=== PATIENT | male | born 1965 | race Caucasian/White ===

== ENCOUNTER → 2017-04-30 | Outpatient (CLI) | payer OTHER ==
[~2017-04-30] MED LIST: ADVAIR 250/501 EA INH; ASPIRIN80 MG PO; CELEBREX200 MG PO; DARVOCET N 1001 TAB PO; DAYPRO600 M1 PO; HYDROCODONE BIT1 T11 PO; LISINOPRIL10 MG PO; MULTI VITAMINS1 TAB PO; MULTI-DAY VITA1 EACH PO; Motrin,Rufen800 MG PO; NEURONTIN400 MG PO; ONCE DAILY1 TA1 PO; Orphenadrine C100 MG PO; PROVENTIL0.09 MG/AC PO; ROBAXIN750 MG PO; TOBRADEX 0.1%-0.5 ML OPH; TRAMADOL HCL50 MG PO; VALIUM2 MG PO; VICODIN ES 7501 TAB PO; ZOFRAN ODT4 MG SL
== END | disposition home or self-care (01) ==
LOC: RAD 15:13
DX: M54.2 Cervicalgia (principal); M62.89 Other specified disorders of muscle; R51 Headache; Z98.1 Arthrodesis status; Z98.890 Other specified postprocedural states

== ENCOUNTER 2017-10-21 10:01 | Emergency (ER) | payer OTHER ==
[~2017-10-21] VITALS: Wt 86.2 kg
[2017-10-21 10:41] LABS: BASO # 0.1 10*3/uL (0.0-0.1); BASO % 0.5 % (0.0-1.0); EOS # 0.3 10*3/uL (0.0-0.4); EOS % 3.1 % (1.0-4.0); HEMATOCRIT 42.2 % (42.0-52.0); HEMOGLOBIN 14.1 g/dl (14.0-18.0); LYMPH # 3.4 10*3/uL (1.3-4.4); LYMPH % 31.7 % (27.0-41.0); MEAN CELL VOLUME 91.9 fl (80.0-94.0); MEAN CORPUSCULAR HGB 30.7 pg (27.0-31.0); MEAN CORPUSCULAR HGB CONC 33.4 g/dl (33.0-37.0); MEAN PLATELET VOLUME 9.8 fl (9.6-12.3); MONO # 0.6 10*3/uL (0.1-1.0); MONO % 5.9 % (3.0-9.0); NEUT # 6.3 10*3/uL (2.3-7.9); NEUT % 58.5 % (47.0-73.0); PLATELET COUNT AUTOMATED 306 10*3/uL (130-400); RED BLOOD COUNT 4.59 10*6/uL (4.50-5.90); RED CELL DISTRI WIDTH 13.2 % (0-14.5); WHITE BLOOD COUNT 10.7 10*3/uL (4.8-10.8)
[2017-10-21 10:48] VITALS: BP 129/82
[2017-10-21 10:53] LABS: BILIRUBIN NEGATIVE (NEGATIVE); BLOOD NEGATIVE (NEGATIVE); CLARITY SL CLOUDY (CLEAR); COLOR YELLOW (YELLOW); GLUCOSE NEGATIVE (NEGATIVE); KETONE NEGATIVE (NEGATIVE); LEUKO ESTERASE NEGATIVE (NEGATIVE); NITRITE NEGATIVE (NEGATIVE); UROBILINOGEN 0.2 E.U./dl (0.2-1.0)
[2017-10-21 10:56] LABS: ALKALINE PHOSPHATASE 94 U/L (45-117); BUN 15 mg/dl (7-24); CHLORIDE 105 mmol/L (98-107); CREATININE 1.18 mg/dL (0.70-1.30); LIPASE 159 U/L (73-393); POTASSIUM 4.3 mmol/L (3.5-5.1); SGOT/AST 15 IU/L (3-35); SGPT/ALT 22 U/L (12-78); SODIUM 140 mmol/L (136-145); TOTAL PROTEIN 7.8 gm/dL (6.4-8.2)
[2017-10-21 11:11] LABS: BACTERIA TRACE; EPITHELIAL CELLS 0-2
[2017-10-21] MEDS ORDERED: BENTYL10 MG PO (12:31)
== END 2017-10-21 12:35 | disposition home or self-care (01) ==
LOC: ED 10:01
PROVIDERS: Physician Assistant
DX: K52.89 Other specified noninfective gastroenteritis and colitis (principal); F17.200 Nicotine dependence, unspecified, uncomplicated; Z90.89 Acquired absence of other organs; Z79.899 Other long term (current) drug therapy; Z88.5 Allergy status to narcotic agent

== ENCOUNTER → 2017-12-02 | Outpatient (CLI) | payer OTHER ==
[~2017-12-02] MED LIST changes: +BENTYL10 MG PO
== END | disposition home or self-care (01) ==
LOC: US 11-25 14:00 → CT 11-25 14:00
DX: I65.23 Occlusion and stenosis of bilateral carotid arteries (principal); H53.2 Diplopia

== ENCOUNTER → 2017-12-25 | Outpatient (CLI) | payer OTHER | END | disposition home or self-care (01) | LOC: MRI 14:38 | DX: H53.8 Other visual disturbances (principal); R51 Headache; R42 Dizziness and giddiness; R26.9 Unspecified abnormalities of gait and mobility ==

== ENCOUNTER 2018-03-26 22:41 | Emergency (ER) | payer OTHER ==
[~2018-03-26] VITALS: Ht 177.8 cm; Wt 83.9 kg
[2018-03-26 22:41] VITALS: BP 129/82
== END 2018-03-26 23:58 | disposition home or self-care (01) ==
LOC: ED 22:41
DX: T15.01XA Foreign body in cornea, right eye, initial encounter (principal); Z90.89 Acquired absence of other organs; Z79.899 Other long term (current) drug therapy; Z88.5 Allergy status to narcotic agent; X58.XXXA Exposure to other specified factors, initial encounter; Y93.89 Activity, other specified; Y92.89 Other specified places as the place of occurrence of the external cause; Y99.9 Unspecified external cause status

== ENCOUNTER → 2018-04-02 | Outpatient (CLI) | payer OTHER | END | disposition home or self-care (01) | LOC: RAD 15:52 | DX: M54.12 Radiculopathy, cervical region (principal); R20.0 Anesthesia of skin; R20.2 Paresthesia of skin ==

== ENCOUNTER → 2018-04-17 | Outpatient (CLI) | payer OTHER | END | disposition home or self-care (01) | LOC: RAD 15:48 | DX: M54.5 Low back pain (principal); R20.2 Paresthesia of skin ==

== ENCOUNTER → 2018-09-16 | Outpatient (CLI) | payer OTHER | END | disposition home or self-care (01) | LOC: NM 07:00 | DX: E05.90 Thyrotoxicosis, unspecified without thyrotoxic crisis or storm (principal); F41.9 Anxiety disorder, unspecified; R19.7 Diarrhea, unspecified; L60.3 Nail dystrophy ==

== ENCOUNTER → 2018-09-24 | Outpatient (CLI) | payer OTHER ==
[2018-09-24 15:31] LABS: BASO # 0.1 10*3/uL (0.0-0.1); BASO % 0.7 % (0.0-1.0); EOS # 0.4 10*3/uL (0.0-0.4); EOS % 3.7 % (1.0-4.0); HEMATOCRIT 31.4 % (42.0-52.0); HEMOGLOBIN 10.1 g/dl (14.0-18.0); LYMPH # 3.7 10*3/uL (1.3-4.4); LYMPH % 38.2 % (27.0-41.0); MEAN CELL VOLUME 95.7 fl (80.0-94.0); MEAN CORPUSCULAR HGB 30.8 pg (27.0-31.0); MEAN CORPUSCULAR HGB CONC 32.2 g/dl (33.0-37.0); MEAN PLATELET VOLUME 9.8 fl (9.6-12.3); MONO # 0.6 10*3/uL (0.1-1.0); NEUT # 4.9 10*3/uL (2.3-7.9); PLATELET COUNT AUTOMATED 283 10*3/uL (130-400); RED BLOOD COUNT 3.28 10*6/uL (4.50-5.90); RED CELL DISTRI WIDTH 12.9 % (0-14.5); WHITE BLOOD COUNT 9.6 10*3/uL (4.8-10.8)
[2018-09-24 16:03] LABS: CHLORIDE 112 mmol/L (98-107); POTASSIUM 4.2 mmol/L (3.5-5.1); SODIUM 143 mmol/L (136-145)
[2018-09-24 16:18] LABS: ALBUMIN 3.5 gm/dl (3.1-4.5); ALKALINE PHOSPHATASE 106 U/L (45-117); BUN 16 mg/dl (7-24); CREATININE 1.17 mg/dL (0.70-1.30); FREE T4 0.82 ng/dl (0.76-1.46); SGOT/AST 11 IU/L (3-35); SGPT/ALT 16 U/L (12-78); THYROID STIM HORMONE (HS) 0.118 uIU/ml (0.358-4.75); THYROXINE (T4) TOTAL 9.6 ug/dl (4.5-12.1); TOTAL PROTEIN 6.8 gm/dL (6.4-8.2)
== END | disposition home or self-care (01) ==
LOC: LAB 14:48
PROVIDERS: Internal Medicine
DX: G43.909 Migraine, unspecified, not intractable, without status migrainosus (principal); E05.90 Thyrotoxicosis, unspecified without thyrotoxic crisis or storm

== ENCOUNTER → 2018-11-11 | Outpatient (CLI) | payer OTHER ==
[2018-11-11 17:02] LABS: IRON 31 ug/dL (65-175); TOTAL IRON BINDING CAPACITY 322 ug/dl (250-450)
[2018-11-12 07:07] LABS: TRANSFERRIN 004937 270 mg/dL (200-370)
[2018-11-12 12:12] LABS: ANTI-DSDNA ANTIBODIES 096339 1 IU/mL (0-9)
[2018-11-12 20:08] LABS: CCP ANTIBODIES IGG/IGA 4 units (0-19)
== END | disposition home or self-care (01) ==
LOC: LAB 16:18
PROVIDERS: Internal Medicine
DX: D64.9 Anemia, unspecified (principal); R76.8 Other specified abnormal immunological findings in serum

== ENCOUNTER → 2018-11-18 | Outpatient (CLI) | payer OTHER ==
[2018-11-19 16:09] LABS: EBV NUCLEAR ANTIGEN IGG >600.0 U/mL (0.0-17.9); EPSTEIN-BARR VCA IGM AB <36.0 U/mL (0.0-35.9)
[2018-11-20 15:08] LABS: CMV QNT Negative (Negative)
== END | disposition home or self-care (01) ==
LOC: LAB 16:37
PROVIDERS: Internal Medicine
DX: R53.82 Chronic fatigue, unspecified (principal)

== ENCOUNTER 2018-12-18 15:16 | Emergency (ER) | payer OTHER ==
[~2018-12-18] VITALS: Ht 177.8 cm; Wt 83.9 kg
[2018-12-18 15:16] VITALS: BP 130/74
[2018-12-18 15:45] LABS: BASO % 0.4 % (0.0-1.0); EOS # 0.2 10*3/uL (0.0-0.4); EOS % 2.3 % (1.0-4.0); HEMATOCRIT 39.4 % (42.0-52.0); HEMOGLOBIN 12.7 g/dl (14.0-18.0); LYMPH # 3.1 10*3/uL (1.3-4.4); LYMPH % 30.8 % (27.0-41.0); MEAN CORPUSCULAR HGB 31.6 pg (27.0-31.0); MEAN CORPUSCULAR HGB CONC 32.2 g/dl (33.0-37.0); MEAN PLATELET VOLUME 9.5 fl (9.6-12.3); MONO # 0.5 10*3/uL (0.1-1.0); MONO % 5.3 % (3.0-9.0); NEUT # 6.1 10*3/uL (2.3-7.9); NEUT % 60.9 % (47.0-73.0); PLATELET COUNT AUTOMATED 270 10*3/uL (130-400); RED BLOOD COUNT 4.02 10*6/uL (4.50-5.90); RED CELL DISTRI WIDTH 12.8 % (0-14.5)
[2018-12-18 16:05] LABS: BUN 15 mg/dl (7-24); CHLORIDE 106 mmol/L (98-107); POTASSIUM 3.4 mmol/L (3.5-5.1); SODIUM 140 mmol/L (136-145)
== END 2018-12-18 17:01 | disposition home or self-care (01) ==
LOC: ED 15:16
PROVIDERS: Emergency Medicine
DX: G43.909 Migraine, unspecified, not intractable, without status migrainosus (principal); F17.200 Nicotine dependence, unspecified, uncomplicated; G89.29 Other chronic pain; M54.2 Cervicalgia; Z90.89 Acquired absence of other organs; Z79.899 Other long term (current) drug therapy; Z88.5 Allergy status to narcotic agent

== ENCOUNTER 2019-04-27 17:05 | Inpatient (IN) | payer OTHER ==
[~2019-04-27] VITALS: Ht 177.8 cm; Wt 80.1 kg
--- NOTE | ~2019-04-27 | EKG ---
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
--- NOTE | ~2019-04-27 | EKG ---
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
--- NOTE | ~2019-04-27 | EKG ---
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
[2019-04-27] MEDS ORDERED: TRAZODONE50 MG PO (17:15)
[2019-04-27] MEDS ORDERED: TOPAMAX50 MG PO (17:16)
[2019-04-27] MEDS ORDERED: FERROUS SULFAT324 M2 PO (17:16)
[2019-04-27] MEDS ORDERED: TRAMADOL HCL50 MG PO (17:17)
[2019-04-27] MEDS ORDERED: GABAPENTIN800 MG PO (17:17)
[2019-04-27] MEDS ORDERED: ADVAIR 250/501 EA INH (17:18)
[2019-04-27] MEDS ORDERED: PROAIR HFA8.5 GM INH (17:18)
[2019-04-27] MEDS ORDERED: OMEPRAZOLE40 MG PO (17:19)
[2019-04-27] MEDS ORDERED: CYMBALTA60 MG PO (17:19)
[2019-04-27] MEDS ORDERED: TAPAZOLE10 MG PO (17:19)
[2019-04-27 17:32] LABS: BASO # 0.1 10*3/uL (0.0-0.1); BASO % 0.7 % (0.0-1.0); EOS # 0.4 10*3/uL (0.0-0.4); EOS % 4.7 % (1.0-4.0); HEMATOCRIT 38.1 % (42.0-52.0); HEMOGLOBIN 12.2 g/dl (14.0-18.0); LYMPH % 36.6 % (27.0-41.0); MEAN CELL VOLUME 95.5 fl (80.0-94.0); MEAN CORPUSCULAR HGB 30.6 pg (27.0-31.0); MEAN PLATELET VOLUME 10.2 fl (9.6-12.3); MONO # 0.7 10*3/uL (0.1-1.0); MONO % 8.4 % (3.0-9.0); NEUT % 49.2 % (47.0-73.0); PLATELET COUNT AUTOMATED 280 10*3/uL (130-400); RED BLOOD COUNT 3.99 10*6/uL (4.50-5.90); RED CELL DISTRI WIDTH 13.6 % (0-14.5); WHITE BLOOD COUNT 8.1 10*3/uL (4.8-10.8)
[2019-04-27 17:39] VITALS: BP 105/68
[2019-04-27 17:44] LABS: ACT PARTIAL THROMBO TIME 28.5 SECONDS (20.0-32.1); INTERNATIONAL NORM RATIO 0.9 (2.0-3.5)
[2019-04-27 17:51] LABS: ALBUMIN 3.6 gm/dl (3.1-4.5); ALKALINE PHOSPHATASE 109 U/L (45-117); BUN 18 mg/dl (7-24); CHLORIDE 112 mmol/L (98-107); CREATININE 1.17 mg/dL (0.70-1.30); SGOT/AST 13 IU/L (3-35); SGPT/ALT 19 U/L (12-78); SODIUM 142 mmol/L (136-145); TOTAL PROTEIN 7.1 gm/dL (6.4-8.2)
[2019-04-27 17:52] LABS: TROPONIN I < 0.015 ng/ml (<0.045)
[2019-04-27 18:35] VITALS: BP 125/68
--- NOTE | 2019-04-27 19:05 | NUR ---
RECEIVED ROOM NUMBER 426, STATED THAT THE ROOM WAS NOT READY AND THE PT WOULD NOT BE GOING UPSTAIRS UNTIL AFTER 7PM
[2019-04-27 19:39] VITALS: BP 115/68
--- NOTE | 2019-04-27 19:45 | NUR ---
CALLED TO GIVE REPORT, STATED THAT THE ROOM IS NOT CLEAN AND IS NOT READY FOR PT, STATED THAT THEY WILL CALL WHEN ROOM IS CLEAN.
--- NOTE | 2019-04-27 20:22 | NUR ---
SPOKE WITH HAMLET STATED THAT THE ROOM IS CLEAN AT THIE TIME.
[2019-04-27 20:25] VITALS: BP 113/73
--- NOTE | 2019-04-27 20:25 | NUR ---
A 53, admitted to 4E, under the services of MILI Bear MD with a diagnosis of NONSPECIFIC CHEST PAIN, ARM PAIN, LEFT LEG PAIN. Chief complaint is ANGINA. Patient arrived via wheel chair from ER. Monitor applied. Initial assessment completed. Vital signs taken and recorded. MILI BEAR MD notified of admission to the unit. Orders received. See assessment for past medical history, medications and allergies. Patient and/or family oriented to unit. [facility] visitation policy reviewed. Clothing/patient valuable form completed. HAMLET NICKERSON
--- NOTE | 2019-04-27 21:00 | NUR ---
NOTIFIED DR SHARP THAT PT'S MED REC IS UP TO DATE.
[2019-04-28] VITALS: BP 118/64
[2019-04-28 06:33] LABS: INTERNATIONAL NORM RATIO 0.9 (2.0-3.5)
[2019-04-28 06:43] LABS: ALBUMIN 3.3 gm/dl (3.1-4.5); BASO # 0.1 10*3/uL (0.0-0.1); BASO % 0.4 % (0.0-1.0); BUN 15 mg/dl (7-24); CHLORIDE 112 mmol/L (98-107); CHOLESTEROL 143 mg/dL (<200); CREATININE 1.26 mg/dL (0.70-1.30); EOS # 0.4 10*3/uL (0.0-0.4); EOS % 3.5 % (1.0-4.0); HEMATOCRIT 37.9 % (42.0-52.0); HEMOGLOBIN 12.1 g/dl (14.0-18.0); LYMPH # 2.2 10*3/uL (1.3-4.4); LYMPH % 19.7 % (27.0-41.0); MEAN CELL VOLUME 96.7 fl (80.0-94.0); MEAN CORPUSCULAR HGB 30.9 pg (27.0-31.0); MEAN CORPUSCULAR HGB CONC 31.9 g/dl (33.0-37.0); MEAN PLATELET VOLUME 10.1 fl (9.6-12.3); MONO # 0.7 10*3/uL (0.1-1.0); MONO % 5.7 % (3.0-9.0); NEUT % 70.4 % (47.0-73.0); PHOSPHOROUS 2.3 mg/dL (2.5-4.9); PLATELET COUNT AUTOMATED 262 10*3/uL (130-400); POTASSIUM 4.2 mmol/L (3.5-5.1); RED BLOOD COUNT 3.92 10*6/uL (4.50-5.90); RED CELL DISTRI WIDTH 13.7 % (0-14.5); SGOT/AST 12 IU/L (3-35); SGPT/ALT 17 U/L (12-78); SODIUM 144 mmol/L (136-145); TOTAL PROTEIN 6.5 gm/dL (6.4-8.2); TRIGLYCERIDES 90 mg/dl (<150); VLDL CHOLESTEROL 18 mg/dL (6-40); WHITE BLOOD COUNT 11.3 10*3/uL (4.8-10.8)
[2019-04-28 06:49] LABS: ALKALINE PHOSPHATASE 101 U/L (45-117); HDL CHOLESTEROL 45 mg/dl (40-60); LDL CHOLESTEROL 80 mg/dL (9-159)
--- NOTE | 2019-04-28 07:50 | NUR ---
PT SLEEPING IN BED, AWAKENS EASILY. RESP-EASY AND REGULAR. NO C/O AT THIS TIME. CALL LIGHT IN REACH. SEE SHIFT ASSESSMENT.
--- NOTE | 2019-04-28 09:00 | NUR ---
Food Safety Scientist in to see patient. He is currently not in his room. Will follow up at a later time.
--- NOTE | 2019-04-28 09:00 | NUR ---
ASSISTED DOWN TO CARDIAC REHAB VIA WHEELCHAIR.
[2019-04-28 09:39] LABS: VITAMIN D, 25-HYDROXY 42.4 ng/mL (30-100)
--- NOTE | 2019-04-28 10:15 | NUR ---
INFORMED CONSENT OBTAINED FOR EXERCISE CARDIOLITE WITH DR. ELAINE. RESTING EKG NSR WITH A SUPINE HR OF 60 WITH BP OF 124/70 AND HR OF 67 WITH BP OF 118/76 IN STANDING POSITION. PT COMPLETED 10:45 OF A KERRY PROTOCOL WITH COMPLETION OF 1:45 OF STAGE IV AT 4.2 MPH AND 16% GRADE. REACHED A PEAK HR OF 157 WHICH IS 93% OF PREDICTED MAX WITH A PEAK BP OF 174/50. TEST TERMINATED BECAUSE OF FATIGUE. HAD NO CHEST PAIN OR ANY EKG CHANGES. HAS A RARE PVC WITH ONE COUPLET. HAS A HIGH EXERCISE TOLERANCE. LAST RECOVERY HR OF 96 WITH BP OF 112/64. AWAITING SCANNING IN STABLE CONDITION.
--- NOTE | 2019-04-28 10:34 | NUR ---
Pacu Rn in to see patient. He is currently not in his room. Will follow up at a later time.
[2019-04-28 12:00] VITALS: BP 119/74
--- NOTE | 2019-04-28 12:30 | NUR ---
Cream Tester in to talk to patient. Patient states lives at home with his and 2 sons. There are 13 steps in the home. Physician: Dr. Karl Sanches Pharmacy: [facility] Home health services: none Patient's level of ADLs: INDEPENDENT Patient has working utilities: yes DME: none Follow-up physician's appointment after d/c: he prefers to make his own follow up appt after discharge Does patient want to access PORTAL?: no Discharge plan discussed with patient. He lives at home with his and 2 sons. He is independent in his ADLs and ambulation. Discussed home health care services and he denies any home needs at this time. When medically stable he will be discharged to home. NANDINI ARREOLA
--- NOTE | 2019-04-28 13:20 | NUR ---
TOLERATED ROUTINE MED WITH NO PROBLEM. CALL LIGHT IN REACH.
[2019-04-28 16:00] VITALS: BP 115/70
--- NOTE | 2019-04-28 16:00 | NUR ---
RESTING IN BED. NO C/O AT THIS TIME. CALL LIGHT IN REACH. SEE SHIFT ASSESSMENT.
--- NOTE | 2019-04-28 18:40 | NUR ---
RESTING IN BED. RESP-EASY AND REGULAR. CALL LIGHT IN REACH.,
[2019-04-28 20:00] VITALS: BP 126/67
[2019-04-29] VITALS: BP 113/59
--- NOTE | 2019-04-29 02:00 | NUR ---
24 HR CHART CHECK COMPLETED
[2019-04-29 08:00] VITALS: BP 110/73
--- NOTE | 2019-04-29 08:15 | NUR ---
PT RESTING IN BED. RESP-EASY AND REGULAR. NO C/O AT THIS TIME. CALL LIGHT IN REACH.
--- NOTE | 2019-04-29 09:00 | NUR ---
It Security Specialist in to see patient. No new needs or request at this time. He denies any home needs. When medically stable he will be discharged to home. Notified Dr. Sanches of discharge planning needed as patient is at his hospital days.
--- NOTE | 2019-04-29 11:15 | NUR ---
Discharge instructions reviewed with patient/family. Patient receptive and verbalizes understanding. Follow-up care arranged. Written instructions given to patient/family. HEPLOCK REMOVED. MONITOR REMOVED. AMBULATORY OFF THE FLOOR WITH MOM AT HIS SIDE. VIC BARAHONA
== END 2019-04-29 11:15 | disposition home or self-care (01) | DRG 313 ==
LOC: ED 17:05 → 4E 18:51 → EDHOLD 18:51 → 4E 19:08
PROVIDERS: Emergency Medicine; Student in an Organized Health Care Education/Training Program; ADMIT Internal Medicine
PROC: 3E073KZ Introduction of Other Diagnostic Substance into Coronary Artery, Percutaneous Approach (ICD-10-PCS; principal; 2019-04-28)
PROC: 4A02XM4 Measurement of Cardiac Total Activity, External Approach (ICD-10-PCS; principal; 2019-04-28)
DX: R07.89 Other chest pain (principal); M79.602 Pain in left arm; M79.605 Pain in left leg; R51 Headache; J45.909 Unspecified asthma, uncomplicated; Z88.5 Allergy status to narcotic agent

== ENCOUNTER 2019-07-28 13:45 | Emergency (ER) | payer OTHER ==
[~2019-07-28] VITALS: Ht 177.8 cm; Wt 79.4 kg
[~2019-07-28 13:45] MED LIST changes: +CYMBALTA60 MG PO; +FERROUS SULFAT324 M2 PO; +GABAPENTIN800 MG PO; +OMEPRAZOLE40 MG PO; +PROAIR HFA8.5 GM INH; +TAPAZOLE10 MG PO; +TOPAMAX50 MG PO; +TRAZODONE50 MG PO
[2019-07-28 15:10] LABS: BASO # 0.1 10*3/uL (0.0-0.1); BASO % 0.8 % (0.0-1.0); EOS # 0.4 10*3/uL (0.0-0.4); EOS % 4.5 % (1.0-4.0); HEMATOCRIT 41.3 % (42.0-52.0); HEMOGLOBIN 13.2 g/dl (14.0-18.0); LYMPH # 3.3 10*3/uL (1.3-4.4); LYMPH % 39.1 % (27.0-41.0); MEAN CELL VOLUME 94.9 fl (80.0-94.0); MEAN CORPUSCULAR HGB 30.3 pg (27.0-31.0); MEAN PLATELET VOLUME 9.7 fl (9.6-12.3); MONO # 0.5 10*3/uL (0.1-1.0); MONO % 6.4 % (3.0-9.0); NEUT # 4.2 10*3/uL (2.3-7.9); PLATELET COUNT AUTOMATED 311 10*3/uL (130-400); RED BLOOD COUNT 4.35 10*6/uL (4.50-5.90); RED CELL DISTRI WIDTH 13.4 % (0-14.5); WHITE BLOOD COUNT 8.5 10*3/uL (4.8-10.8)
[2019-07-28 15:21] LABS: ACT PARTIAL THROMBO TIME 29.2 SECONDS (20.0-32.1); INTERNATIONAL NORM RATIO 0.9 (2.0-3.5)
[2019-07-28 15:25] LABS: ALBUMIN 3.6 gm/dl (3.1-4.5); ALKALINE PHOSPHATASE 108 U/L (45-117); BUN 14 mg/dl (7-24); CHLORIDE 113 mmol/L (98-107); CREATININE 1.31 mg/dL (0.70-1.30); POTASSIUM 3.8 mmol/L (3.5-5.1); SGOT/AST 11 IU/L (3-35); SGPT/ALT 20 U/L (12-78); SODIUM 142 mmol/L (136-145)
[2019-07-28 16:04] VITALS: BP 128/79
== END 2019-07-28 16:46 | disposition home or self-care (01) ==
LOC: ED 13:45
PROVIDERS: Emergency Medicine
DX: G43.909 Migraine, unspecified, not intractable, without status migrainosus (principal); R20.0 Anesthesia of skin; M54.2 Cervicalgia; J34.89 Other specified disorders of nose and nasal sinuses; Z88.6 Allergy status to analgesic agent; Z79.899 Other long term (current) drug therapy

== ENCOUNTER → 2019-10-15 | Outpatient (CLI) | payer OTHER | END | disposition home or self-care (01) | LOC: RAD 16:16 | DX: M51.36 Other intervertebral disc degeneration, lumbar region (principal); M25.552 Pain in left hip; M25.551 Pain in right hip ==

== ENCOUNTER → 2019-11-03 | Outpatient (CLI) | payer OTHER | END | disposition home or self-care (01) | LOC: MRI 15:00 | DX: Z01.818 Encounter for other preprocedural examination (principal); M54.5 Low back pain ==

== ENCOUNTER → 2020-08-02 | Outpatient (CLI) | payer OTHER | END | disposition home or self-care (01) | LOC: US 09:54 | PROVIDERS: ATTEND Internal Medicine | DX: R11.0 Nausea (principal) ==

== ENCOUNTER → 2020-08-23 | Outpatient (CLI) | payer OTHER ==
[~2020-08-23] MED LIST changes: +NORCO 5-325 TA1 EACH PO
== END | disposition home or self-care (01) ==
LOC: NM 06:55
PROVIDERS: ATTEND Internal Medicine
DX: R93.5 Abnormal findings on diagnostic imaging of other abdominal regions, including retroperitoneum (principal)

== ENCOUNTER 2020-09-16 17:17 | Emergency (ER) | payer OTHER ==
[~2020-09-16] VITALS: Ht 177.8 cm; Wt 86.2 kg
[~2020-09-16 17:17] MED LIST changes: -NORCO 5-325 TA1 EACH PO
[2020-09-16 17:22] VITALS: BP 166/94
[2020-09-16] MEDS ORDERED: NORCO 5-325 TA1 EACH PO (18:02)
== END 2020-09-16 18:06 | disposition home or self-care (01) ==
LOC: ED 17:17
DX: K80.50 Calculus of bile duct without cholangitis or cholecystitis without obstruction (principal); Z88.6 Allergy status to analgesic agent; Z79.899 Other long term (current) drug therapy

== ENCOUNTER 2021-04-04 17:15 | Emergency (ER) | payer OTHER ==
[~2021-04-04] VITALS: Ht 177.8 cm; Wt 86.2 kg
[~2021-04-04 17:15] MED LIST changes: +NORCO 5-325 TA1 EACH PO
[2021-04-04 17:33] LABS: HEMATOCRIT 39.9 % (42.0-52.0); MEAN CORPUSCULAR HGB CONC 33.3 g/dl (33.0-37.0); PLATELET COUNT AUTOMATED 334 10*3/uL (130-400); RED BLOOD COUNT 4.29 10*6/uL (4.50-5.90); RED CELL DISTRI WIDTH 13.2 % (0-14.5); WHITE BLOOD COUNT 10.4 10*3/uL (4.8-10.8)
[2021-04-04 18:03] LABS: ATYPICAL LYMPHS 3 % (0-0); BASOPHILS 1 % (0-1); TOTAL CELLS COUNTED 100 #CELLS
[2021-04-04 18:04] LABS: BURR CELLS FEW; PLATELET SUFFICIENCY NORMAL (NORMAL)
[2021-04-04 18:20] LABS: ALBUMIN 3.5 gm/dl (3.1-4.5); ALKALINE PHOSPHATASE 125 U/L (45-117); BUN 18 mg/dl (7-24); CHLORIDE 109 mmol/L (98-107); CREATININE 1.19 mg/dL (0.70-1.30); POTASSIUM 4.3 mmol/L (3.5-5.1); SGOT/AST 15 IU/L (3-35); SGPT/ALT 18 U/L (12-78); SODIUM 141 mmol/L (136-145); TOTAL PROTEIN 6.8 gm/dL (6.4-8.2)
[2021-04-04 18:57] LABS: ACT PARTIAL THROMBO TIME 29.1 SECONDS (20.0-32.1); INTERNATIONAL NORM RATIO 0.9 (2.0-3.5)
[2021-04-04 19:48] VITALS: BP 128/80
== END 2021-04-04 20:37 | disposition short-term general hospital (02) ==
LOC: ED 17:15
PROVIDERS: Emergency Medicine
DX: I21.3 ST elevation (STEMI) myocardial infarction of unspecified site (principal); Z88.6 Allergy status to analgesic agent; Z79.899 Other long term (current) drug therapy; Z98.890 Other specified postprocedural states

== ENCOUNTER → 2021-04-18 | Outpatient (CLI) | payer OTHER | END | disposition home or self-care (01) | LOC: US 10:35 | PROVIDERS: ATTEND Internal Medicine | DX: M79.601 Pain in right arm (principal) ==

== ENCOUNTER → 2021-10-15 | Outpatient (CLI) | payer OTHER | END | disposition home or self-care (01) | LOC: COVID19 16:25 | PROVIDERS: ATTEND Internal Medicine | DX: U07.1 COVID-19 (principal) ==

== ENCOUNTER → 2022-06-14 | Outpatient (CLI) | payer OTHER ==
[~2022-06-14] MED LIST changes: +BRILINTA90 M1 PO; +CYCLOBENZAPRINE10 MG PO; +KAPSPARGO SPRIN25 MG PO; +LEVOTHYROXINE25 MCG PO; +MOMETASONE FURO17 GM NAS; +NITROGLYCERIN0.4 MG SL; +PRAVASTATIN SOD40 MG PO; +ROSUVASTATIN CA20 MG PO; +VAZALORE81 MG PO
== END | disposition home or self-care (01) ==
LOC: US 04-18 07:30
PROVIDERS: ATTEND Internal Medicine
DX: I65.23 Occlusion and stenosis of bilateral carotid arteries (principal)

== ENCOUNTER → 2023-04-09 | Outpatient (CLI) | payer OTHER | END | disposition home or self-care (01) | LOC: NM 00:29 | PROVIDERS: ATTEND Internal Medicine | DX: E05.90 Thyrotoxicosis, unspecified without thyrotoxic crisis or storm (principal) ==

== ENCOUNTER → 2023-04-21 | Outpatient (CLI) | payer OTHER ==
[2023-04-24 16:08] LABS: TESTOSTERONE FREE, (DIRECT) 2.8 pg/mL (7.2-24.0)
== END | disposition home or self-care (01) ==
LOC: LAB 01:11
PROVIDERS: ATTEND Internal Medicine
DX: N52.2 Drug-induced erectile dysfunction (principal); R07.9 Chest pain, unspecified

== ENCOUNTER 2023-10-12 18:48 | Emergency (ER) | payer OTHER ==
[~2023-10-12] VITALS: Ht 177.8 cm; Wt 90.7 kg
[~2023-10-12 18:48] MED LIST changes: +HYDROCODONE-AC1 EAC1 PO; +PROVENTIL HFA6.7 GM INH
[2023-10-12 19:34] VITALS: BP 138/73
[2023-10-12 20:13] LABS: BASO % 0.6 % (0.0-1.0); EOS % 0.4 % (1.0-4.0); HEMATOCRIT 39.9 % (42.0-52.0); LYMPH # 1.4 10*3/uL (1.3-4.4); LYMPH % 25.5 % (27.0-41.0); MEAN CELL VOLUME 93.9 fl (80.0-94.0); MEAN CORPUSCULAR HGB 30.4 pg (27.0-31.0); MEAN CORPUSCULAR HGB CONC 32.3 g/dl (33.0-37.0); MEAN PLATELET VOLUME 9.9 fl (9.6-12.3); MONO # 0.7 10*3/uL (0.1-1.0); MONO % 12.2 % (3.0-9.0); NEUT # 3.3 10*3/uL (2.3-7.9); NEUT % 60.9 % (47.0-73.0); PLATELET COUNT AUTOMATED 206 10*3/uL (130-400); RED BLOOD COUNT 4.25 10*6/uL (4.50-5.90); RED CELL DISTRI WIDTH 12.8 % (0-14.5); WHITE BLOOD COUNT 5.3 10*3/uL (4.8-10.8)
[2023-10-12 20:25] LABS: ACT PARTIAL THROMBO TIME 32.8 SECONDS (20.0-32.1)
[2023-10-12 20:36] LABS: ALKALINE PHOSPHATASE 84 U/L (46-116); BUN 14 mg/dl (9-23); CHLORIDE 106 mmol/L (98-107); POTASSIUM 3.3 mmol/L (3.4-5.1); SGPT/ALT 18 U/L (5-49)
[2023-10-12] MEDS ORDERED: AVPAK AZITHROM250 M1 PO (22:14)
[2023-10-12] MEDS ORDERED: PREDNISONE20 M1 PO (22:14)
[2023-10-13] MEDS ORDERED: AVPAK AZITHROM250 MG PO (11:27)
[2023-10-13] MEDS ORDERED: PREDNISONE20 M1 PO (11:27)
== END 2023-10-12 23:13 | disposition home or self-care (01) ==
LOC: ED 18:48
PROVIDERS: Nurse Practitioner Family
DX: J44.9 Chronic obstructive pulmonary disease, unspecified (principal); E87.6 Hypokalemia; I25.10 Atherosclerotic heart disease of native coronary artery without angina pectoris; E78.00 Pure hypercholesterolemia, unspecified; I10 Essential (primary) hypertension; E03.9 Hypothyroidism, unspecified; D64.9 Anemia, unspecified; Z98.890 Other specified postprocedural states; Z88.5 Allergy status to narcotic agent; Z90.49 Acquired absence of other specified parts of digestive tract; Z90.89 Acquired absence of other organs; Z95.5 Presence of coronary angioplasty implant and graft; F17.200 Nicotine dependence, unspecified, uncomplicated

== ENCOUNTER → 2024-10-25 | Outpatient (CLI) | payer OTHER ==
[~2024-10-25] MED LIST changes: +AMOX-CLAV 875-1 EACH PO; +AVPAK AZITHROM250 M1 PO; +AVPAK AZITHROM250 MG PO; +CEFDINIR300 MG PO; +CLARITIN-D 121 EACH PO; +ERTAPENEM1 GM IV; +FLONASE ALLERG9.9 ML NAS; +HEPARIN SODIUM 300 UNITS/3 ML SYR IV ONE; +IOHEXOL 300 MG/ML 100 ML VIAL IV ONE; +METHIMAZOLE10 MG PO; +METRONIDAZOLE500 M1 PO; +MICAFUNGIN100 MG IV; +PREDNISONE20 M1 PO; +PROAIR DIGIHAL90 MCG IH; +RANOLAZINE ER500 MG PO; +TAMSULOSIN HCL0.4 MG PO; +VOLTAREN ARTHRI20 GM T
== END | disposition home or self-care (01) ==
LOC: CT 03:07
PROVIDERS: ATTEND Surgery
DX: Z09 Encounter for follow-up examination after completed treatment for conditions other than malignant neoplasm (principal); I25.10 Atherosclerotic heart disease of native coronary artery without angina pectoris; K76.0 Fatty (change of) liver, not elsewhere classified; Z90.49 Acquired absence of other specified parts of digestive tract; Z90.5 Acquired absence of kidney

== ENCOUNTER 2024-11-15 12:23 | Emergency (ER) | payer OTHER ==
[~2024-11-15] VITALS: Ht 177.8 cm; Wt 93.9 kg
[~2024-11-15 12:23] MED LIST changes: -HEPARIN SODIUM 300 UNITS/3 ML SYR IV ONE; -IOHEXOL 300 MG/ML 100 ML VIAL IV ONE
[2024-11-15 12:37] VITALS: BP 128/73
[2024-11-15] MEDS ORDERED: SODIUM CHLORIDE 0.9% 500 ML IV ONE (13:50)
[2024-11-15] MEDS ORDERED: IOHEXOL 300 MG/ML 100 ML VIAL IV ONE (13:55)
[2024-11-15] MEDS ORDERED: MORPHINE Sulfate 2 MG/ML SYR IV ONE (13:55)
[2024-11-15 14:04] LABS: BASO # 0.1 10*3/uL (0.0-0.1); BASO % 0.9 % (0.0-1.0); EOS # 0.3 10*3/uL (0.0-0.4); HEMATOCRIT 37.2 % (42.0-52.0); MEAN CELL VOLUME 96.6 fl (80.0-94.0); MEAN CORPUSCULAR HGB 30.4 pg (27.0-31.0); MEAN CORPUSCULAR HGB CONC 31.5 g/dl (33.0-37.0); MEAN PLATELET VOLUME 9.3 fl (9.6-12.3); MONO # 0.4 10*3/uL (0.1-1.0); MONO % 5.3 % (3.0-9.0); NEUT # 4.4 10*3/uL (2.3-7.9); NEUT % 54.1 % (47.0-73.0); PLATELET COUNT AUTOMATED 277 10*3/uL (130-400); RED BLOOD COUNT 3.85 10*6/uL (4.50-5.90); RED CELL DISTRI WIDTH 13.6 % (0-14.5); WHITE BLOOD COUNT 8.2 10*3/uL (4.8-10.8)
[2024-11-15 14:29] LABS: BUN 11 mg/dl (9-23); CHLORIDE 107 mmol/L (98-107); POTASSIUM 3.9 mmol/L (3.4-5.1)
[2024-11-15 16:28] LABS: BILIRUBIN Negative (Negative); BLOOD Negative (Negative); CLARITY Clear (Clear); COLOR Yellow (Yellow); GLUCOSE Negative (Negative); KETONE Negative (Negative); LEUKO ESTERASE Negative (Negative); NITRITE Negative (Negative); SPECIFIC GRAVITY >= 1.030 (1.001-1.030); UROBILINOGEN 0.2 E.U./dl (0.0-1.0)
[2024-11-15 16:45] LABS: EPITHELIAL CELLS 0-2; WBC 0-2 wbc/hpf (0-5)
[2024-11-15] MEDS ORDERED: CIPRO500 MG PO (17:54)
== END 2024-11-15 18:35 | disposition home or self-care (01) ==
LOC: ED 12:23
PROVIDERS: Internal Medicine
DX: N30.90 Cystitis, unspecified without hematuria (principal); M62.838 Other muscle spasm; R11.2 Nausea with vomiting, unspecified; I10 Essential (primary) hypertension; J45.909 Unspecified asthma, uncomplicated; F17.200 Nicotine dependence, unspecified, uncomplicated; Z88.5 Allergy status to narcotic agent; Z90.49 Acquired absence of other specified parts of digestive tract; Z90.89 Acquired absence of other organs; Z98.890 Other specified postprocedural states